=== PATIENT | female | born 1980 | race Two or more races ===

== ENCOUNTER 2018-06-09 15:38 | Emergency (ER) | payer OTHER ==
[~2018-06-09] VITALS: Ht 144.8 cm; Wt 60.8 kg
[~2018-06-09 15:38] MED LIST: ALTACE10 MG; BENADRYL25 MG PO; CLONAZEPAM0.5 MG; CORTISONE + COO28 GM TP; MEDROLPACK PO; PROVENTIL3 ML/2.5 M IH; RISPERDAL1 MG; SYNTHROID50 MCG; TESSALON PERLE100 M1 PO; XANAX2 MG; ZOLOFT25 MG; ZYRTEC10 M3 PO
== END 2018-06-09 18:49 | disposition home or self-care (01) ==
LOC: ER 15:38
DX: J06.9 Acute upper respiratory infection, unspecified (principal); J32.0 Chronic maxillary sinusitis; J11.1 Influenza due to unidentified influenza virus with other respiratory manifestations

== ENCOUNTER 2019-02-28 02:29 | Emergency (ER) | payer OTHER ==
[~2019-02-28] VITALS: Ht 144.8 cm; Wt 59.0 kg
== END 2019-02-28 06:39 | disposition home or self-care (01) ==
LOC: ER 02:29
DX: K29.70 Gastritis, unspecified, without bleeding (principal)

== ENCOUNTER 2020-03-04 14:53 | Emergency (ER) | payer OTHER ==
[~2020-03-04] VITALS: Ht 144.8 cm; Wt 63.5 kg
[2020-03-04] MEDS ORDERED: ABILIFY10 MG PO (15:45)
[2020-03-04] MEDS ORDERED: LITHOBID300 M1 PO (15:46)
[2020-03-04] MEDS ORDERED: LAMICTAL100 M1 PO (15:46)
== END 2020-03-04 19:05 | disposition home or self-care (01) ==
LOC: ER 14:53
DX: E86.0 Dehydration (principal); J02.9 Acute pharyngitis, unspecified; Z03.818 Encounter for observation for suspected exposure to other biological agents ruled out; R10.84 Generalized abdominal pain; R53.1 Weakness

== ENCOUNTER → 2020-03-09 | Emergency (ER) | payer OTHER ==
[~2020-03-09] VITALS: Ht 144.8 cm; Wt 63.5 kg
[~2020-03-09] MED LIST changes: +ABILIFY10 MG PO; +LAMICTAL100 M1 PO; +LITHOBID300 M1 PO
== END | disposition home or self-care (01) ==
LOC: ER 16:22
DX: R10.31 Right lower quadrant pain (principal); R10.32 Left lower quadrant pain; Z03.818 Encounter for observation for suspected exposure to other biological agents ruled out

== ENCOUNTER 2020-05-06 16:35 | Emergency (ER) | payer OTHER ==
[~2020-05-06] VITALS: Ht 144.8 cm; Wt 62.6 kg
[2020-05-06] MEDS ORDERED: MECLIZINE HCL25 MG PO (21:23)
== END 2020-05-06 21:27 | disposition home or self-care (01) ==
LOC: ER 16:35
DX: R42 Dizziness and giddiness (principal); Z03.818 Encounter for observation for suspected exposure to other biological agents ruled out

== ENCOUNTER 2020-07-12 10:57 | Emergency (ER) | payer OTHER ==
[~2020-07-12] VITALS: Ht 144.8 cm; Wt 63.5 kg
[~2020-07-12 10:57] MED LIST changes: +MECLIZINE HCL25 MG PO
[2020-07-12] MEDS ORDERED: MEDROLPACK PO (15:16)
[2020-07-12] MEDS ORDERED: ZITHROMAX TRI-500 MG PO (15:16)
== END 2020-07-12 16:20 | disposition home or self-care (01) ==
LOC: ER 10:57
DX: B34.9 Viral infection, unspecified (principal); Z03.818 Encounter for observation for suspected exposure to other biological agents ruled out; R05 Cough

== ENCOUNTER → 2020-11-13 | Outpatient (CLI) | payer OTHER ==
[~2020-11-13] MED LIST changes: +ZITHROMAX TRI-500 MG PO
== END | disposition home or self-care (01) ==
LOC: MRI 13:30
PROVIDERS: ATTEND Orthopaedic Surgery
DX: M25.561 Pain in right knee (principal); M25.562 Pain in left knee
CPT/HCPCS: 73721

== ENCOUNTER 2021-03-07 22:53 | Emergency (ER) | payer OTHER ==
[~2021-03-07] VITALS: Ht 144.8 cm; Wt 69.9 kg
[2021-03-08] MEDS ORDERED: CEPHALEXIN500 MG PO (00:50)
== END 2021-03-08 01:17 | disposition home or self-care (01) ==
LOC: ER 22:53
DX: S61.412A Laceration without foreign body of left hand, initial encounter (principal); R51.9 Headache, unspecified; W26.0XXA Contact with knife, initial encounter; Y93.89 Activity, other specified; Y92.018 Other place in single-family (private) house as the place of occurrence of the external cause; Y99.8 Other external cause status

== ENCOUNTER 2021-04-20 22:18 | Emergency (ER) | payer OTHER ==
[~2021-04-20] VITALS: Ht 142.2 cm; Wt 68.0 kg
[~2021-04-20 22:18] MED LIST changes: +CEPHALEXIN500 MG PO
[2021-04-21] MEDS ORDERED: LEVSIN0.125 MG PO (04:10)
[2021-04-21] MEDS ORDERED: PEPCID AC20 MG PO (04:10)
[2021-04-21] MEDS ORDERED: INTESTINEX680 M2 PO (04:10)
[2021-04-21] MEDS ORDERED: PROTONIX20 MG PO (04:10)
== END 2021-04-21 04:14 | disposition home or self-care (01) ==
LOC: ER 22:18
DX: K90.9 Intestinal malabsorption, unspecified (principal); R10.32 Left lower quadrant pain; R19.7 Diarrhea, unspecified

== ENCOUNTER 2021-07-06 10:12 | Emergency (ER) | payer OTHER ==
[~2021-07-06] VITALS: Ht 172.7 cm; Wt 65.8 kg
[~2021-07-06 10:12] MED LIST changes: +INTESTINEX680 M2 PO; +LEVSIN0.125 MG PO; +PEPCID AC20 MG PO; +PROTONIX20 MG PO
[2021-07-06] MEDS ORDERED: TESSALON PERLE100 M1 PO (15:43)
[2021-07-06] MEDS ORDERED: MUCINEX DM ER1 EAC1 PO (15:43)
[2021-07-06] MEDS ORDERED: IPRAT-ALBUT 0.5-3 ML IH (15:43)
[2021-07-06] MEDS ORDERED: BUDESONIDE0.5 MG/2 M IH (15:43)
[2021-07-06] MEDS ORDERED: SYNTHROID50 MCG PO (15:44)
== END 2021-07-06 19:51 ==
LOC: ER 10:12
DX: J06.9 Acute upper respiratory infection, unspecified (principal); Z20.822 Contact with and (suspected) exposure to COVID-19

== ENCOUNTER 2021-10-30 10:14 | Outpatient (CLI) | payer OTHER ==
[~2021-10-30 10:14] MED LIST changes: +BUDESONIDE0.5 MG/2 M IH; +IPRAT-ALBUT 0.5-3 ML IH; +MUCINEX DM ER1 EAC1 PO; +SYNTHROID50 MCG PO
== END 2021-10-30 10:20 | disposition home or self-care (01) ==
LOC: LAB 10:14
PROVIDERS: ATTEND Radiology Diagnostic Radiology
DX: R10.10 Upper abdominal pain, unspecified (principal)

== ENCOUNTER 2021-11-02 07:21 | Outpatient (CLI) | payer OTHER | END 2021-11-02 07:30 | disposition home or self-care (01) | LOC: RAD 07:21 | PROVIDERS: ATTEND Orthopaedic Surgery | DX: R10.10 Upper abdominal pain, unspecified (principal); M25.561 Pain in right knee; M25.562 Pain in left knee; S83.201A Bucket-handle tear of unspecified meniscus, current injury, left knee, initial encounter | CPT/HCPCS: 73560; 73721; 74177; Q9965 ==

== ENCOUNTER 2021-12-31 08:24 | Day surgery (SDC) | payer OTHER ==
[~2021-12-31 08:24] MED LIST changes: +LIPITOR40 M1 PO; +SINGULAIR10 MG PO
[2021-12-31] MEDS ORDERED: PROTONIX40 MG PO (09:06)
[2021-12-31] MEDS ORDERED: CEFADROXIL500 MG PO (09:08)
[2021-12-31] MEDS ORDERED: ULTRACET PO (09:09)
== END 2021-12-31 11:30 | disposition home or self-care (01) ==
LOC: CIR.AMB 08:24
PROVIDERS: ATTEND Surgery
DX: L72.12 Trichodermal cyst (principal); K42.9 Umbilical hernia without obstruction or gangrene; Z20.822 Contact with and (suspected) exposure to COVID-19; J45.909 Unspecified asthma, uncomplicated; E03.9 Hypothyroidism, unspecified; E16.2 Hypoglycemia, unspecified; G62.9 Polyneuropathy, unspecified; F41.9 Anxiety disorder, unspecified; K21.9 Gastro-esophageal reflux disease without esophagitis

== ENCOUNTER 2022-03-20 12:59 | Emergency (ER) | payer OTHER ==
[~2022-03-20] VITALS: Ht 142.2 cm; Wt 76.2 kg
[~2022-03-20 12:59] MED LIST changes: +CEFADROXIL500 MG PO; +PROTONIX40 MG PO; +ULTRACET PO
[2022-03-20] MEDS ORDERED: NEURONTIN600 M1 PO (13:29)
[2022-03-20] MEDS ORDERED: TOPAMAX50 MG (13:29)
== END 2022-03-20 15:50 | disposition home or self-care (01) ==
LOC: ER 12:59
DX: G43.909 Migraine, unspecified, not intractable, without status migrainosus (principal); R11.0 Nausea; Z88.8 Allergy status to other drugs, medicaments and biological substances

== ENCOUNTER 2022-10-08 10:36 | Outpatient (CLI) | payer OTHER ==
[~2022-10-08 10:36] MED LIST changes: +NEURONTIN600 M1 PO; +TOPAMAX50 MG
== END 2022-10-08 10:49 | disposition home or self-care (01) ==
LOC: RAD 10:36
PROVIDERS: ATTEND Orthopaedic Surgery
DX: M25.561 Pain in right knee (principal); M25.562 Pain in left knee

== ENCOUNTER 2023-03-14 11:25 | Outpatient (CLI) | payer OTHER | END 2023-03-14 11:34 | disposition home or self-care (01) | LOC: MRI 11:25 | PROVIDERS: ATTEND Orthopaedic Surgery | DX: M25.562 Pain in left knee (principal) | CPT/HCPCS: 73721 ==